=== PATIENT | female | born 1945 | race Caucasian/White ===

== ENCOUNTER 2022-11-04 12:19 | Emergency (ER) | payer OTHER ==
[~2022-11-04] VITALS: Ht 154.9 cm; Wt 54.4 kg
[2022-11-04 12:20] VITALS: BP_SYST 151
[2022-11-04] MEDS ORDERED: LORazepam 1 MG TABLET PO ONE (12:45)
== END 2022-11-04 14:12 | disposition home or self-care (01) ==
LOC: SED 12:19
DX: R25.1 Tremor, unspecified (principal); R42 Dizziness and giddiness; F41.9 Anxiety disorder, unspecified; I10 Essential (primary) hypertension; Z79.899 Other long term (current) drug therapy; V89.2XXA Person injured in unspecified motor-vehicle accident, traffic, initial encounter; Y93.89 Activity, other specified; Y92.89 Other specified places as the place of occurrence of the external cause; Y99.8 Other external cause status
CPT/HCPCS: 70450-TC; 71045; 76376; 93005; 99284